=== PATIENT | female | born 1965 | race Caucasian/White ===

== ENCOUNTER 2022-08-17 11:18 | Outpatient (CLI) | payer BC | END 2022-08-17 11:19 | disposition home or self-care (01) | LOC: CSHMAMMO 11:18 | PROVIDERS: ATTEND Obstetrics & Gynecology | DX: Z13.820 Encounter for screening for osteoporosis (principal); M85.851 Other specified disorders of bone density and structure, right thigh; M85.852 Other specified disorders of bone density and structure, left thigh | CPT/HCPCS: 77080 ==

== ENCOUNTER 2023-08-09 12:23 | Inpatient (IN) | payer BC ==
[2023-08-09 12:56] VITALS: BMI 23.6
[2023-08-09] MEDS ORDERED: Acetaminophen 650 MG Suppository PR PRN (13:16)
[2023-08-09] MEDS ORDERED: Ondansetron ODT 4 MG TAB PO PRN (13:16)
[2023-08-09] MEDS ORDERED: Acetaminophen 325 MG TAB PO PRN (13:16)
[2023-08-09 14:33] LABS: #Monocytes 0.6 10x3/uL (0.0-1.1); #Neutrophils 2.6 10x3/uL (1.5-8.4); %Basophils 0.4 % (0.0-2.0); %Lymphocytes 34.4 % (18.0-47.0); %Monocytes 11.4 % (0.0-10.0); %Neutrophils 53.8 % (40.0-75.0); Hematocrit 41.4 % (34.9-44.5); Hemoglobin 14.1 g/dL (12.0-15.5); Mean Corpuscular HGB CONC 34.1 g/dL (32.0-36.0); Mean Corpuscular Hemoglobin 29.5 pg (27.0-33.0); Mean Corpuscular Volume 86.6 fl (81.6-98.3); Mean Platelet Volume 11.1 fl (7.4-10.4); Platelet Count 195 10x3/uL (150-450); RBC Distribution Width 13.3 % (11.5-14.5); Red Blood Cell (RBC) Count 4.78 10x6/uL (3.90-5.03); White Blood Cell (WBC) Count 4.8 10x3/uL (3.5-10.5)
[2023-08-09 14:35] LABS: Anion Gap 10 mmol/L (10-20); BUN (Urea Nitrogen) 14 mg/dL (9.8-20.1); Calc. Creatinine Clearance 76 mL/min (70-130); Calcium 8.6 mg/dL (7.8-10.44); Carbon Dioxide 25 mmol/L (22-29); Chloride 109 mmol/L (98-107); Estimated GFR 70; Glucose 94 mg/dL (70-105); Potassium 3.9 mmol/L (3.5-5.1); Sodium 140 mmol/L (136-145)
[2023-08-09] MEDS ORDERED: Micafungin 100 MG in Sodium Chloride 0.9% 100 ML IVPB SCH (16:00)
[2023-08-09] MEDS: clonazePAM 0.5 MG TAB PO SCH (21:16)
[2023-08-09] MEDS: Estradiol 1 MG TAB PO SCH (21:17)
[2023-08-09] MEDS: Zolpidem Tartrate 5 MG TAB PO SCH (21:17)
[2023-08-10 04:49] LABS: #Monocytes 0.6 10x3/uL (0.0-1.1); #Neutrophils 1.9 10x3/uL (1.5-8.4); %Basophils 0.4 % (0.0-2.0); %Lymphocytes 44.7 % (18.0-47.0); %Monocytes 12.9 % (0.0-10.0); Hematocrit 39.3 % (34.9-44.5); Hemoglobin 13.5 g/dL (12.0-15.5); Mean Corpuscular HGB CONC 34.4 g/dL (32.0-36.0); Mean Corpuscular Hemoglobin 29.3 pg (27.0-33.0); Mean Corpuscular Volume 85.4 fl (81.6-98.3); Platelet Count 174 10x3/uL (150-450); RBC Distribution Width 13.3 % (11.5-14.5); White Blood Cell (WBC) Count 4.6 10x3/uL (3.5-10.5)
[2023-08-10 04:56] LABS: Anion Gap 10 mmol/L (10-20); BUN (Urea Nitrogen) 16 mg/dL (9.8-20.1); Calc. Creatinine Clearance 94 mL/min (70-130); Calcium 8.3 mg/dL (7.8-10.44); Carbon Dioxide 25 mmol/L (22-29); Chloride 107 mmol/L (98-107); Estimated GFR 91; Glucose 86 mg/dL (70-105); Potassium 3.7 mmol/L (3.5-5.1); Sodium 138 mmol/L (136-145)
[2023-08-10 13:12] LABS: Hemoglobin A1c 5.6 % (4.0-6.0)
[2023-08-10] MEDS: Micafungin 100 MG in Sodium Chloride 0.9% 100 ML IVPB SCH (16:38)
[2023-08-10] MEDS: Estradiol 1 MG TAB PO SCH (21:06)
[2023-08-10] MEDS: Zolpidem Tartrate 5 MG TAB PO SCH (21:07)
[2023-08-10] MEDS: clonazePAM 0.5 MG TAB PO SCH (21:08)
[2023-08-11 03:50] LABS: #Monocytes 0.6 10x3/uL (0.0-1.1); #Neutrophils 1.9 10x3/uL (1.5-8.4); %Basophils 0.2 % (0.0-2.0); %Monocytes 12.6 % (0.0-10.0); %Neutrophils 41.2 % (40.0-75.0); Hemoglobin 14.4 g/dL (12.0-15.5); Mean Corpuscular HGB CONC 34.3 g/dL (32.0-36.0); Mean Corpuscular Hemoglobin 28.7 pg (27.0-33.0); Mean Corpuscular Volume 83.8 fl (81.6-98.3); Mean Platelet Volume 10.6 fl (7.4-10.4); Platelet Count 192 10x3/uL (150-450); RBC Distribution Width 13.2 % (11.5-14.5); Red Blood Cell (RBC) Count 5.01 10x6/uL (3.90-5.03); White Blood Cell (WBC) Count 4.7 10x3/uL (3.5-10.5)
[2023-08-11 04:01] LABS: Anion Gap 11 mmol/L (10-20); BUN (Urea Nitrogen) 16 mg/dL (9.8-20.1); Calc. Creatinine Clearance 96 mL/min (70-130); Calcium 8.4 mg/dL (7.8-10.44); Carbon Dioxide 24 mmol/L (22-29); Chloride 107 mmol/L (98-107); Estimated GFR 93; Glucose 86 mg/dL (70-105); Potassium 3.8 mmol/L (3.5-5.1); Sodium 138 mmol/L (136-145)
[2023-08-11] MEDS ORDERED: Lorazepam 2 MG/ML VIAL SLOW IVP SCH (10:00)
[2023-08-11] MEDS: Micafungin 100 MG in Sodium Chloride 0.9% 100 ML IVPB SCH (16:05)
[2023-08-11] MEDS: clonazePAM 0.5 MG TAB PO SCH (21:10)
[2023-08-11] MEDS: Zolpidem Tartrate 5 MG TAB PO SCH (21:11)
[2023-08-11] MEDS: Estradiol 1 MG TAB PO SCH (21:11)
[2023-08-12 03:52] LABS: #Monocytes 0.7 10x3/uL (0.0-1.1); #Neutrophils 2.6 10x3/uL (1.5-8.4); %Basophils 0.4 % (0.0-2.0); %Lymphocytes 38.6 % (18.0-47.0); %Monocytes 12.8 % (0.0-10.0); Hematocrit 42.7 % (34.9-44.5); Hemoglobin 14.5 g/dL (12.0-15.5); Mean Corpuscular Hemoglobin 28.4 pg (27.0-33.0); Mean Corpuscular Volume 83.6 fl (81.6-98.3); Mean Platelet Volume 10.6 fl (7.4-10.4); Platelet Count 195 10x3/uL (150-450); RBC Distribution Width 13.2 % (11.5-14.5); Red Blood Cell (RBC) Count 5.11 10x6/uL (3.90-5.03); White Blood Cell (WBC) Count 5.3 10x3/uL (3.5-10.5)
[2023-08-12 04:10] LABS: ALT (SGPT) 11 U/L (8-55); AST (SGOT) 12 U/L (5-34); Albumin 3.7 g/dL (3.5-5.0); Alkaline Phosphatase 57 U/L (40-110); Anion Gap 14 mmol/L (10-20); BUN (Urea Nitrogen) 20 mg/dL (9.8-20.1); Bilirubin, Total 0.3 mg/dL (0.2-1.2); Calc. Creatinine Clearance 94 mL/min (70-130); Calcium 8.4 mg/dL (7.8-10.44); Carbon Dioxide 22 mmol/L (22-29); Chloride 106 mmol/L (98-107); Estimated GFR 91; Globulin 2.5 g/dL (2.4-3.5); Glucose 87 mg/dL (70-105); Potassium 3.9 mmol/L (3.5-5.1); Protein, Total 6.2 g/dL (6.0-8.3); Sodium 138 mmol/L (136-145)
[2023-08-12 07:47] VITALS: BP 126/74; TEMP 98.7
[2023-08-12] MEDS ORDERED: Micafungin 100 MG in Sodium Chloride 0.9% 100 ML IVPB SCH (10:30)
== END 2023-08-12 12:56 | disposition home or self-care (01) | DRG 759 ==
LOC: CSHTELE 12:23 → CSHPED 08-10 09:15
PROVIDERS: ADMIT Obstetrics & Gynecology; ATTEND Family Medicine
PROC: 02HV33Z Insertion of Infusion Device into Superior Vena Cava, Percutaneous Approach (ICD-10-PCS; principal; 2023-08-11)
PROC: B5181ZA Fluoroscopy of Superior Vena Cava using Low Osmolar Contrast, Guidance (ICD-10-PCS; 2023-08-11)
PROC: 3E04329 Introduction of Other Anti-infective into Central Vein, Percutaneous Approach (ICD-10-PCS; 2023-08-11)
PROC: B548ZZA Ultrasonography of Superior Vena Cava, Guidance (ICD-10-PCS; 2023-08-11)
DX: B37.49 Other urogenital candidiasis (principal); F41.9 Anxiety disorder, unspecified; G47.00 Insomnia, unspecified; R30.0 Dysuria; Z88.2 Allergy status to sulfonamides; Z79.899 Other long term (current) drug therapy; Z90.710 Acquired absence of both cervix and uterus; Z80.51 Family history of malignant neoplasm of kidney
CPT/HCPCS: 36415; 36569; 80048; 80053; 83036; 85025; J2060; J2248; J3490

== ENCOUNTER 2024-03-22 15:02 | Outpatient (CLI) | payer OTHER | END 2024-03-22 15:03 | disposition home or self-care (01) | LOC: CSHCT 15:02 | PROVIDERS: ATTEND Internal Medicine | DX: Z82.49 Family history of ischemic heart disease and other diseases of the circulatory system (principal) | CPT/HCPCS: 75571 ==

== ENCOUNTER 2024-09-11 10:33 | Outpatient (CLI) | payer BC ==
[2024-09-11] MEDS ORDERED: Iopamidol 300 61% 100 ML VIAL FS ONE (10:51)
== END 2024-09-11 10:34 | disposition home or self-care (01) ==
LOC: CSHCT 10:33
PROVIDERS: ATTEND Internal Medicine
DX: R10.84 Generalized abdominal pain (principal)
CPT/HCPCS: 74177; Q9967